=== PATIENT | female | born 1975 | race Caucasian/White ===

== ENCOUNTER → 2023-07-25 | Outpatient (CLI) | payer OTHER | END | disposition home or self-care (01) | LOC: MAMMO 16:00 | PROVIDERS: ATTEND Family Medicine | DX: Z12.31 Encounter for screening mammogram for malignant neoplasm of breast (principal) ==

== ENCOUNTER 2024-07-12 01:38 | Emergency (ER) | payer OTHER ==
[~2024-07-12] VITALS: Ht 160 cm; Wt 63.5 kg
[2024-07-12] MEDS ORDERED: PANTOPRAZOLE SO40 MG PO (01:49)
[2024-07-12] MEDS ORDERED: VARENICLINE TART1 MG PO (01:49)
[2024-07-12] MEDS ORDERED: BUSPAR5 MG PO (01:49)
[2024-07-12] MEDS ORDERED: ATORVASTATIN CA40 M1 PO (01:49)
[2024-07-12] MEDS ORDERED: HYDROXYZINE HCL25 MG PO (01:50)
[2024-07-12] MEDS ORDERED: GOOD NEIGHBOR L10 MG PO (01:50)
[2024-07-12] MEDS ORDERED: AMITRIPTYLINE25 MG PO (01:50)
[2024-07-12] MEDS ORDERED: ESCITALOPRAM OX20 MG PO (01:50)
[2024-07-12] MEDS ORDERED: RIZATRIPTAN10 MG PO (01:50)
[2024-07-12] MEDS ORDERED: TOPIRAMATE50 M2 PO (01:51)
[2024-07-12] MEDS ORDERED: Ondansetron Hydrochloride 4 MG/2 ML VIAL IV ONE (01:55)
[2024-07-12] MEDS ORDERED: Ketorolac Tromethamine 30 MG/ML VIAL IV ONE (01:55)
[2024-07-12] MEDS ORDERED: SODIUM CHLORIDE 0.9% 1,000 ML IV ONE (01:55)
[2024-07-12] MEDS ORDERED: diphenhydrAMINE hydrochloride 50 MG/ML VIAL IV ONE (01:55)
== END 2024-07-12 04:00 | disposition home or self-care (01) ==
LOC: ED 01:38
DX: G43.909 Migraine, unspecified, not intractable, without status migrainosus (principal); Z88.5 Allergy status to narcotic agent

== ENCOUNTER → 2024-10-25 | Outpatient (CLI) | payer OTHER ==
[~2024-10-25] MED LIST: AMITRIPTYLINE25 MG PO; ATORVASTATIN CA40 M1 PO; BUSPAR5 MG PO; CETIRIZINE HYDR10 MG PO; ELETRIPTAN HBR40 MG PO; ESCITALOPRAM OX20 MG PO; ESTRADIOL1 EAC2 TD; GOOD NEIGHBOR L10 MG PO; HYDROXYZINE HCL25 MG PO; KETOROLAC30 MG/1 ML IJ; NAPROSYN500 MG PO; PANTOPRAZOLE SO40 MG PO; RIZATRIPTAN10 MG PO; TOPIRAMATE50 M2 PO; VARENICLINE TART1 MG PO; VITAMIN D325 MCG PO
== END | disposition home or self-care (01) ==
LOC: RAD 16:59
PROVIDERS: ATTEND Family Medicine
DX: M25.561 Pain in right knee (principal)

== ENCOUNTER 2024-10-27 13:10 | Emergency (ER) | payer OTHER ==
[~2024-10-27] VITALS: Ht 160 cm; Wt 65.8 kg
[~2024-10-27 13:10] MED LIST changes: -CETIRIZINE HYDR10 MG PO; -ELETRIPTAN HBR40 MG PO; -ESTRADIOL1 EAC2 TD; -KETOROLAC30 MG/1 ML IJ; -NAPROSYN500 MG PO; -VITAMIN D325 MCG PO
[2024-10-27] MEDS ORDERED: ELETRIPTAN HBR40 MG PO (13:24)
[2024-10-27] MEDS ORDERED: CETIRIZINE HYDR10 MG PO (13:25)
[2024-10-27] MEDS ORDERED: ESTRADIOL1 EAC2 TD (13:25)
[2024-10-27] MEDS ORDERED: VITAMIN D325 MCG PO (13:25)
[2024-10-27] MEDS ORDERED: KETOROLAC30 MG/1 ML IJ (13:26)
[2024-10-27] MEDS ORDERED: Acetaminophen/Hydrocodone 5 MG/325 MG TABLET PO ONE ×2 (13:40→14:35)
[2024-10-27] MEDS ORDERED: NAPROSYN500 MG PO (14:32)
== END 2024-10-27 15:00 | disposition home or self-care (01) ==
LOC: ED 13:10
DX: S80.02XA Contusion of left knee, initial encounter (principal); S80.01XA Contusion of right knee, initial encounter; G43.909 Migraine, unspecified, not intractable, without status migrainosus; Z88.5 Allergy status to narcotic agent; W22.8XXA Striking against or struck by other objects, initial encounter; Y93.89 Activity, other specified; Y92.89 Other specified places as the place of occurrence of the external cause; Y99.8 Other external cause status

== ENCOUNTER → 2024-10-31 | Outpatient (CLI) | payer OTHER ==
[~2024-10-31] MED LIST changes: +CETIRIZINE HYDR10 MG PO; +ELETRIPTAN HBR40 MG PO; +ESTRADIOL1 EAC2 TD; +KETOROLAC30 MG/1 ML IJ; +NAPROSYN500 MG PO; +VITAMIN D325 MCG PO
== END | disposition home or self-care (01) ==
LOC: MRI 02:40
PROVIDERS: ATTEND Family Medicine
DX: S83.242D Other tear of medial meniscus, current injury, left knee, subsequent encounter (principal); S89.92XD Unspecified injury of left lower leg, subsequent encounter; M79.89 Other specified soft tissue disorders; X58.XXXD Exposure to other specified factors, subsequent encounter

== ENCOUNTER → 2024-12-06 | Outpatient (CLI) | payer OTHER ==
[~2024-12-06] MED LIST changes: +GADOTERATE MEGLUMINE 7.5 MMOL/15 ML VIAL IV ONE
== END | disposition home or self-care (01) ==
LOC: MRI 00:53
PROVIDERS: ATTEND Family Medicine
DX: G44.52 New daily persistent headache (NDPH) (principal); H53.2 Diplopia

== ENCOUNTER → 2025-02-10 | Outpatient (CLI) | payer OTHER ==
[~2025-02-10] MED LIST changes: -GADOTERATE MEGLUMINE 7.5 MMOL/15 ML VIAL IV ONE
== END | disposition home or self-care (01) ==
LOC: MRI 02-07 09:00
PROVIDERS: ATTEND Orthopaedic Surgery
DX: S83.282A Other tear of lateral meniscus, current injury, left knee, initial encounter (principal); R60.0 Localized edema; X58.XXXA Exposure to other specified factors, initial encounter; Y93.89 Activity, other specified; Y92.89 Other specified places as the place of occurrence of the external cause; Y99.8 Other external cause status

== ENCOUNTER → 2025-02-27 | Day surgery (SDC) | payer OTHER ==
[~2025-02-27] VITALS: Ht 160 cm; Wt 68.0 kg
[~2025-02-27] MED LIST changes: +BUPivacaine 0.25% 10 ML VIAL ONE; +Bupivacaine Hydrochloride/Ep2 30 ML VIAL ONE; +Dexamethasone Sodium Phospha 4 MG/ML VIAL IV ONE; +EPINEPHrine/Lidocaine Hydroc 20 ML VIAL ONE; +HYDROCODONE-AC1 EAC1 PO; +HYDROmorphONE Hydrochloride 0.5 MG/0.5 ML SYRINGE IV SCH; +HYDROmorphONE Hydrochloride 0.5 MG/0.5 ML SYRINGE ONE; +Ketorolac Tromethamine 30 MG/ML VIAL IV ONE; +Lactated Ringer's Solution 1,000 ML IV ONE; +Lactated Ringer's Solution 1,000 ML IV SCH; +Lidocaine Hydrochloride 5 ML VIAL IV ONE; +Midazolam Hydrochloride 2 MG/2 ML VIAL IV ONE; +Ondansetron Hydrochloride 4 MG/2 ML VIAL IV ONE; +PROPOFOL 200 MG/20 ML VIAL IV ONE; +Phenylephrine Hydrochloride 1 MG/10 ML SYRINGE IV ONE; +SEVOFLURANE 250 ML BOT INH ONE; +ceFAZolin sodium/sodium chlor 20 ML IV ONE; +fentaNYL CITRATE 100 MCG/2 ML VIAL IV ONE
[2025-02-27 08:51] VITALS: BP 123/87
[2025-02-27 09:06] VITALS: BP 142/80
[2025-02-27 09:21] VITALS: BP 145/79
[2025-02-27 09:36] VITALS: BP 134/80
[2025-02-27 09:56] VITALS: BP 117/76
== END | disposition home or self-care (01) ==
LOC: SDC 02-24 08:00
PROVIDERS: ATTEND Orthopaedic Surgery
DX: S83.242A Other tear of medial meniscus, current injury, left knee, initial encounter (principal); G43.909 Migraine, unspecified, not intractable, without status migrainosus; E78.00 Pure hypercholesterolemia, unspecified; K21.9 Gastro-esophageal reflux disease without esophagitis; F41.9 Anxiety disorder, unspecified; F17.210 Nicotine dependence, cigarettes, uncomplicated; Z90.710 Acquired absence of both cervix and uterus; Z80.3 Family history of malignant neoplasm of breast; Z80.1 Family history of malignant neoplasm of trachea, bronchus and lung; Z80.41 Family history of malignant neoplasm of ovary; Z88.5 Allergy status to narcotic agent; X58.XXXA Exposure to other specified factors, initial encounter; Y93.89 Activity, other specified; Y92.89 Other specified places as the place of occurrence of the external cause; Y99.8 Other external cause status

== ENCOUNTER 2025-05-03 20:25 | Emergency (ER) | payer OTHER ==
[~2025-05-03] VITALS: Ht 160 cm; Wt 65.9 kg
[~2025-05-03 20:25] MED LIST changes: -BUPivacaine 0.25% 10 ML VIAL ONE; -Bupivacaine Hydrochloride/Ep2 30 ML VIAL ONE; -Dexamethasone Sodium Phospha 4 MG/ML VIAL IV ONE; -EPINEPHrine/Lidocaine Hydroc 20 ML VIAL ONE; -HYDROmorphONE Hydrochloride 0.5 MG/0.5 ML SYRINGE IV SCH; -HYDROmorphONE Hydrochloride 0.5 MG/0.5 ML SYRINGE ONE; -Ketorolac Tromethamine 30 MG/ML VIAL IV ONE; -Lactated Ringer's Solution 1,000 ML IV ONE; -Lactated Ringer's Solution 1,000 ML IV SCH; -Lidocaine Hydrochloride 5 ML VIAL IV ONE; -Midazolam Hydrochloride 2 MG/2 ML VIAL IV ONE; -Ondansetron Hydrochloride 4 MG/2 ML VIAL IV ONE; -PROPOFOL 200 MG/20 ML VIAL IV ONE; -Phenylephrine Hydrochloride 1 MG/10 ML SYRINGE IV ONE; -SEVOFLURANE 250 ML BOT INH ONE; -ceFAZolin sodium/sodium chlor 20 ML IV ONE; -fentaNYL CITRATE 100 MCG/2 ML VIAL IV ONE
[2025-05-03] MEDS ORDERED: Ketorolac Tromethamine 30 MG/ML VIAL IM ONE (21:50)
== END 2025-05-03 22:07 | disposition home or self-care (01) ==
LOC: ED 20:25
DX: M79.662 Pain in left lower leg (principal); G43.909 Migraine, unspecified, not intractable, without status migrainosus; E78.00 Pure hypercholesterolemia, unspecified; K21.9 Gastro-esophageal reflux disease without esophagitis; Z79.899 Other long term (current) drug therapy; Z88.5 Allergy status to narcotic agent

== ENCOUNTER → 2025-05-05 | Outpatient (CLI) | payer OTHER | END | disposition home or self-care (01) | LOC: US 13:58 | PROVIDERS: ATTEND Orthopaedic Surgery | DX: M79.89 Other specified soft tissue disorders (principal) ==